=== PATIENT | female | born 1990 | race Caucasian/White ===

== ENCOUNTER 2019-05-07 22:17 | Emergency (ER) | payer OTHER ==
[~2019-05-07] VITALS: Ht 170.2 cm; Wt 119.0 kg
[2019-05-07 22:20] VITALS: Ht 170.2 cm; Wt 119.0 kg
[2019-05-08] MEDS ORDERED: IBUP-1561 PO (00:16)
[2019-05-08] MEDS ORDERED: METH750T93 PO (00:16)
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
[2019-05-08 00:47] VITALS: BP 139/91; PULSE 68; RESP 18
== END 2019-05-08 00:47 | disposition home or self-care (01) ==
LOC: FTE 22:17
DX: M54.5 Low back pain (principal); M79.644 Pain in right finger(s); M25.562 Pain in left knee
CPT/HCPCS: 99283